=== PATIENT | female | born 1990 | race Caucasian/White ===

== ENCOUNTER 2019-01-16 22:04 | Emergency (ER) | payer SELFPAY ==
[~2019-01-16] VITALS: Ht 167.6 cm; Wt 65.8 kg
[2019-01-16 22:10] VITALS: BP 146/97
--- NOTE | 2019-01-16 22:10 | NUR ---
PT TAKEN TO BED 7
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
--- NOTE | 2019-01-16 22:59 | NUR ---
PT RETURN FROM ULTRASOUND
--- NOTE | 2019-01-16 23:00 | NUR ---
Dr. Taylor evaluating patient at bedside.
[2019-01-16 23:17] LABS: BASOPHILS # (AUTO) 0.1 K/uL (0.00-0.22); BASOPHILS % (AUTO) 1.5 % (0.0-2.0); EOSINOPHILS # (AUTO) 0.2 K/uL (0-0.4); EOSINOPHILS % (AUTO) 2.4 % (0.0-4.0); HEMATOCRIT 40.7 % (36-48); HEMOGLOBIN 13.4 g/dL (12.0-16.0); LYMPHOCYTES # (AUTO) 2.9 K/uL (2.5-16.5); LYMPHOCYTES % (AUTO) 44.8 % (20.5-51.1); MEAN CORPUSCULAR HEMOGLOBIN 31 pg (27-31); MEAN CORPUSCULAR HGB CONC 33 g/dL (33-37); MEAN CORPUSCULAR VOLUME 93.7 fL (80-94); MONOCYTES # (AUTO) 0.7 K/uL (0.8-1.0); NEUTROPHILS # (AUTO) 2.6 K/uL (1.8-7.7); NEUTROPHILS % (AUTO) 40.3 % (42.2-75.2); PLATELET COUNT (AUTO) 279 K/uL (140-450); RED BLOOD CELL COUNT(AUTO) 4.35 MIL/uL (4.20-5.40); RED CELL DISTRIBUTION WIDTH 13.2 % (11.6-13.7); WHITE BLOOD COUNT (AUTO) 6.5 K/uL (4.8-10.8)
[2019-01-16 23:23] LABS: ANION GAP 6.5 (8-16); CARBON DIOXIDE 31.9 mmol/L (21-32); CREATININE 0.8 mg/dL (0.6-1.3); POTASSIUM 3.4 mmol/L (3.5-5.1)
[2019-01-16 23:48] LABS: APPEARANCE,URINE SL CLOUDY (CLEAR); BILIRUBIN,URINE NEGATIVE (NEGATIVE); BLOOD, URINE 3+ (NEGATIVE); COLOR,URINE YELLOW (YELLOW); LEUKOCYTE ESTERASE ,URINE TRACE (NEGATIVE); NITRITE, URINE POSITIVE (NEGATIVE); UGLUCOSE NEGATIVE (NEGATIVE)
[2019-01-16 23:49] LABS: RBC,URINE 3-10 (FEW) /HPF (0-5); WBC,URINE 0-5 (RARE) /HPF (0-5)
[2019-01-17 00:34] VITALS: BP 140/90
== END 2019-01-17 00:35 | disposition home or self-care (01) ==
LOC: MED 22:04
DX: O20.0 Threatened abortion (principal); O23.41 Unspecified infection of urinary tract in pregnancy, first trimester; Z3A.01 Less than 8 weeks gestation of pregnancy; Z88.6 Allergy status to analgesic agent; Z90.89 Acquired absence of other organs
CPT/HCPCS: 36415; 76801; 80048; 81001; 81025; 84702; 85025; 86900; 86901; 87086; 87186; 99284; Q0092

== ENCOUNTER 2019-04-18 04:28 | Emergency (ER) | payer OTHER ==
[~2019-04-18] VITALS: Ht 167.6 cm; Wt 65.8 kg
[2019-04-18 04:30] VITALS: BP 145/90
--- NOTE | 2019-04-18 04:30 | NUR ---
TO BED # 08 AMBULATORY
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
--- NOTE | 2019-04-18 04:50 | NUR ---
DR WHITE AT BEDSIDE.
--- NOTE | 2019-04-18 05:02 | NUR ---
JALEEL CANO AT BEDSIDE SPEAKING WITH PATIENT.
[2019-04-18] MEDS ORDERED: ACETAMINOPHEN 325 MG TAB PO ONE (05:20)
--- NOTE | 2019-04-18 05:25 | NUR ---
WILL GIVE MEDICATION ORDERED WHEN PATIENT HAS FINISHED SPEAKING WITH PD.
--- NOTE | 2019-04-18 05:41 | NUR ---
[place] [facility] LEFT BEDSIDE.
--- NOTE | 2019-04-18 05:52 | NUR ---
TOLD DR. WHITE THAT URINE HCG IS NEGATIVE. DR WHITE AT BEDSIDE.
[2019-04-18 05:58] LABS: BILIRUBIN,URINE NEGATIVE (NEGATIVE); BLOOD, URINE NEGATIVE (NEGATIVE); COLOR,URINE YELLOW (YELLOW); LEUKOCYTE ESTERASE ,URINE 1+ (NEGATIVE); NITRITE, URINE NEGATIVE (NEGATIVE); UGLUCOSE NEGATIVE (NEGATIVE)
[2019-04-18 06:06] LABS: APPEARANCE,URINE HAZY (CLEAR)
[2019-04-18 06:08] LABS: RBC,URINE NONE SEEN /HPF (0-5)
[2019-04-18 06:31] LABS: BASOPHILS # (AUTO) 0.1 K/uL (0.00-0.22); BASOPHILS % (AUTO) 0.9 % (0.0-2.0); EOSINOPHILS # (AUTO) 0.1 K/uL (0-0.4); EOSINOPHILS % (AUTO) 1.2 % (0.0-4.0); HEMATOCRIT 39.6 % (36-48); HEMOGLOBIN 13.2 g/dL (12.0-16.0); LYMPHOCYTES # (AUTO) 2.1 K/uL (2.5-16.5); LYMPHOCYTES % (AUTO) 33.7 % (20.5-51.1); MEAN CORPUSCULAR HEMOGLOBIN 31 pg (27-31); MEAN CORPUSCULAR HGB CONC 33 g/dL (33-37); MEAN CORPUSCULAR VOLUME 92.2 fL (80-94); MONOCYTES # (AUTO) 0.7 K/uL (0.8-1.0); MONOCYTES % (AUTO) 11.8 % (1.7-9.3); NEUTROPHILS # (AUTO) 3.2 K/uL (1.8-7.7); NEUTROPHILS % (AUTO) 52.4 % (42.2-75.2); PLATELET COUNT (AUTO) 310 K/uL (140-450); RED CELL DISTRIBUTION WIDTH 13.3 % (11.6-13.7); WHITE BLOOD COUNT (AUTO) 6.2 K/uL (4.8-10.8)
[2019-04-18 06:43] LABS: ALBUMIN 3.9 g/dL (3.4-5.0); ANION GAP 12.2 (8-16); CREATININE 0.9 mg/dL (0.6-1.3); POTASSIUM 3.2 mmol/L (3.5-5.1); TOTAL BILIRUBIN 0.5 mg/dL (0.0-1.0)
[2019-04-18] MEDS ORDERED: POTASSIUM CHLORIDE 10 MEQ TABER PO ONE ×2 (06:50→07:00)
--- NOTE | 2019-04-18 06:52 | NUR ---
40MEQ POTASSIUM GIVEN PER DR. WHITE VERBAL ORDER.
[2019-04-18 07:08] VITALS: BP 138/78
--- NOTE | 2019-04-18 07:08 | NUR ---
NADR TO K GIVEN.
== END 2019-04-18 07:09 | disposition home or self-care (01) ==
LOC: MED 04:28
DX: S30.0XXA Contusion of lower back and pelvis, initial encounter (principal); N39.0 Urinary tract infection, site not specified; Z79.899 Other long term (current) drug therapy; Y04.2XXA Assault by strike against or bumped into by another person, initial encounter; Y93.89 Activity, other specified; Y92.89 Other specified places as the place of occurrence of the external cause; Y99.8 Other external cause status
CPT/HCPCS: 36415; 80053; 81001; 81025; 83880; 85025; 87086; 87186; 99283